=== PATIENT | male | born 1960 | race Caucasian/White ===

== ENCOUNTER 2017-08-18 04:08 | Emergency (ER) | payer OTHER ==
[~2017-08-18] VITALS: Ht 177.8 cm; Wt 122.7 kg
[2017-08-18 04:51] LABS: APPEARANCE CLEAR ((CLEAR)); BILIRUBIN NEGATIVE; BLOOD NEGATIVE; COLOR YELLOW ((YELLOW)); GLUCOSE (STRIP) NEGATIVE; KETONES NEGATIVE; LEUKOCYTES NEGATIVE; NITRITE NEGATIVE; PROTEIN (STRIP) NEGATIVE; SPECIFIC GRAVITY 1.026 (1.000-1.030); UCUL ADDED? NO; UROBILINOGEN 0.2 MG/DL (0.2-1.0)
[2017-08-18 05:03] LABS: BASOPHIL (%) 0.3 % (0-1); EOSINOPHIL (%) 1.9 % (0-5); EOSINOPHIL COUNT 0.2 K/uL (0-0.3); HEMATOCRIT 38.1 % (38.0-50.0); HEMOGLOBIN 12.6 G/DL (12.5-16.6); IMMATURE GRANULOCYTE (%) 0.8 % (0.0-0.7); LYMPHOCYTE (%) 11.7 % (15-42); LYMPHOCYTE COUNT 1.4 K/uL (1.0-2.8); MCH 30.1 PG (29.0-34.0); MCHC 33.1 G/DL (30.0-36.0); MCV 90.9 FL (86-99); MONOCYTE COUNT 0.6 K/uL (0-0.8); NEUTROPHIL (%) 80.3 % (45-76); NEUTROPHIL COUNT 9.7 K/uL (1.8-6.4); PLATELET COUNT 238 K/uL (156-360); RBC DIS.WIDTH-CV 12.7 % (11.8-14.6); RBC DIS.WIDTH-SD 41.7 % (39-53); RED BLOOD COUNT 4.19 M/uL (4.00-5.50); WHITE BLOOD COUNT 12.1 K/uL (4.1-10.2)
[2017-08-18 05:15] LABS: ALBUMIN 3.9 g/dL (3.2-4.8); CHLORIDE 100 mEq/L (99-109); POTASSIUM 4.3 mEq/L (3.7-5.4); SODIUM 134 mEq/L (136-147)
[2017-08-18 05:18] LABS: GLUCOSE 171 mg/dL (70-99); TOTAL PROTEIN 7.1 g/dL (6.4-8.3)
[2017-08-18 05:20] LABS: TOTAL BILIRUBIN 0.2 mg/dL (0.0-1.0)
[2017-08-18 05:21] LABS: ALKALINE PHOSPHATASE 70 IU/L (3-129); CREATININE 1.1 mg/dL (0.6-1.3); GFR ESTIMATE (CALCULATED) > 59 mL/min/ (58.99-99999)
[2017-08-18 05:23] LABS: AST (GOT) 24 IU/L (2-34); DIRECT BILIRUBIN 0.1 mg/dL (0.0-0.3); UREA NITROGEN (BUN) 20 mg/dL (9-23)
[2017-08-18 05:24] LABS: ALT (GPT) 21 IU/L (3-49)
[2017-08-18 05:25] LABS: LIPASE 61 U/L (1.0-51.0)
[2017-08-18] MEDS ORDERED: NORCO 5/3251 TABLET PO (07:29)
[2017-08-18 07:41] VITALS: BP 104/65
== END 2017-08-18 07:42 | disposition home or self-care (01) ==
LOC: EME 04:08
PROVIDERS: Emergency Medicine
DX: N20.1 Calculus of ureter (principal); E11.9 Type 2 diabetes mellitus without complications; E78.5 Hyperlipidemia, unspecified; I10 Essential (primary) hypertension
CPT/HCPCS: 74176; 80048; 80076; 81003; 83690; 85025; 99281; 99284; J1885; J2270; J7030

== ENCOUNTER 2017-11-30 21:33 | Observation (INO) | payer OTHER ==
[~2017-11-30] VITALS: Ht 175.3 cm; Wt 123.0 kg
[~2017-11-30 21:33] MED LIST: NORCO 5/3251 TABLET PO
[2017-11-30 22:22] LABS: HEMATOCRIT 36.1 % (38.0-50.0); HEMOGLOBIN 12.1 G/DL (12.5-16.6); MCH 30.6 PG (29.0-34.0); MCHC 33.5 G/DL (30.0-36.0); MCV 91.4 FL (86-99); PLATELET COUNT 237 K/uL (156-360); RBC DIS.WIDTH-CV 13.2 % (11.8-14.6); RBC DIS.WIDTH-SD 44.5 % (39-53); RED BLOOD COUNT 3.95 M/uL (4.00-5.50); WHITE BLOOD COUNT 8.6 K/uL (4.1-10.2)
[2017-11-30 22:34] LABS: ALBUMIN 3.9 g/dL (3.2-4.8)
[2017-11-30 22:35] LABS: CHLORIDE 104 mEq/L (99-109); POTASSIUM 4.5 mEq/L (3.7-5.4); SODIUM 138 mEq/L (136-147)
[2017-11-30 22:37] LABS: GLUCOSE 172 mg/dL (70-99); TOTAL PROTEIN 6.9 g/dL (6.4-8.3)
[2017-11-30 22:39] LABS: TOTAL BILIRUBIN 0.3 mg/dL (0.0-1.0)
[2017-11-30 22:40] LABS: ALKALINE PHOSPHATASE 84 IU/L (3-129)
[2017-11-30 22:41] LABS: CREATININE 1.1 mg/dL (0.6-1.3); GFR ESTIMATE (CALCULATED) > 59 mL/min/ (58.99-99999)
[2017-11-30 22:42] LABS: AST (GOT) 18 IU/L (2-34); UREA NITROGEN (BUN) 15 mg/dL (9-23)
[2017-11-30 22:44] LABS: ALT (GPT) 27 IU/L (3-49)
[2017-11-30 22:47] LABS: TROP-I INTERPRETATION NEGATIVE; TROPONIN-I < 0.01 ng/mL (0.0-0.30)
[2017-11-30] MEDS ORDERED: LEVEMIR100 UNIT/2 SC (23:27)
[2017-11-30] MEDS ORDERED: METFORMIN HCL1000 MG PO (23:28)
[2017-11-30] MEDS ORDERED: HUMALOG100 UNIT/1 SC (23:28)
[2017-11-30] MEDS ORDERED: ADULT ASPIRIN R81 MG PO (23:29)
[2017-11-30] MEDS ORDERED: PROTONIX40 MG PO (23:29)
[2017-11-30] MEDS ORDERED: LISINOPRIL40 MG PO (23:29)
[2017-11-30] MEDS ORDERED: SIMVASTATIN40 MG PO (23:29)
[2017-11-30] MEDS ORDERED: TRULICITY1.5 MG/0.5 SC (23:29)
[2017-11-30] MEDS ORDERED: METOCLOPRAMIDE10 MG PO (23:29)
[2017-12-01 01:36] VITALS: BP 120/59
[2017-12-01 05:49] LABS: TROP-I INTERPRETATION NEGATIVE; TROPONIN-I < 0.01 ng/mL (0.0-0.30)
[2017-12-01 06:08] LABS: HDL CHOLESTEROL 26 MG/DL (Desirable>=40); LDL CHOLESTEROL 21 mg/dL (Desirable<100); NON-HDL CHOLESTEROL 86 mg/dL (Desirable<160); TOTAL CHOLESTEROL 112 mg/dL (Desirable<200); TRIGLYCERIDES 326 MG/DL (Normal: <150)
[2017-12-01 07:22] VITALS: BP 113/67
[2017-12-01 11:17] LABS: TROP-I INTERPRETATION NEGATIVE; TROPONIN-I 0.01 ng/mL (0.0-0.30)
== END 2017-12-01 11:41 | disposition home or self-care (01) ==
LOC: EME 21:33 → EDOF 23:48 → 4SOUTH 23:48 → EDOF 23:48 → ENRESERV 23:49 → 4SOUTH 12-01 01:24 → ENPENDDIS 12-01 11:21 → 4SOUTH 12-01 11:41
PROVIDERS: Hospitalist; Physician Assistant Medical
DX: R07.81 Pleurodynia (principal); R94.31 Abnormal electrocardiogram [ECG] [EKG]; I10 Essential (primary) hypertension; E78.5 Hyperlipidemia, unspecified; E11.40 Type 2 diabetes mellitus with diabetic neuropathy, unspecified; E11.65 Type 2 diabetes mellitus with hyperglycemia; Z87.442 Personal history of urinary calculi; Z82.49 Family history of ischemic heart disease and other diseases of the circulatory system; Z80.0 Family history of malignant neoplasm of digestive organs; Z80.8 Family history of malignant neoplasm of other organs or systems; Z88.8 Allergy status to other drugs, medicaments and biological substances; Z79.82 Long term (current) use of aspirin; Z79.4 Long term (current) use of insulin; G89.29 Other chronic pain; M54.5 Low back pain; E66.01 Morbid (severe) obesity due to excess calories; Z68.41 Body mass index [BMI] 40.0-44.9, adult; Z87.891 Personal history of nicotine dependence
CPT/HCPCS: 71046; 80053; 80061; 82948; 83735; 84484; 85027; 85379; 93005; G0378; J1815; J2930